=== PATIENT | female | born 1950 | race Caucasian/White ===

== ENCOUNTER 2023-06-13 07:03 | Day surgery (SDC) | payer OTHER ==
[~2023-06-13] VITALS: Ht 152.4 cm; Wt 67.1 kg
[~2023-06-13 07:03] MED LIST: ACETAMINOPHEN 500 MG TABLET PO ONE; CELECOXIB 200 MG CAPSULE PO ONE; GABAPENTIN 300 MG CAPSULE PO ONE; INDOCYANINE GREEN 25 MG VIAL IV ONE; ceFAZolin SODIUM 2 GM in D5W 50 ML IV ONE
[2023-06-13] MEDS ORDERED: CELECOXIB 200 MG CAPSULE ONE (07:32)
[2023-06-13] MEDS ORDERED: GABAPENTIN 300 MG CAPSULE ONE (07:32)
[2023-06-13] MEDS ORDERED: ACETAMINOPHEN 500 MG TABLET ONE (07:32)
[2023-06-13] MEDS ORDERED: NS IRRIG SOLN 1000 ML IR ONE (07:40)
[2023-06-13] MEDS ORDERED: DEXAMETHASONE SOD PHOSPHATE 4 MG/ML VIAL ONE (07:40)
[2023-06-13] MEDS ORDERED: KETOROLAC TROMETHAMINE 30 MG VIAL ONE (07:40)
[2023-06-13] MEDS ORDERED: ONDANSETRON HCL 4 MG/2 ML VIAL ONE (07:40)
[2023-06-13] MEDS ORDERED: MIDAZOLAM HCL/PF 2 MG/2 ML SYRINGE ONE (07:40)
[2023-06-13] MEDS ORDERED: LIDOCAINE/EPI 1% 1:100000 20 ML VIAL ONE (07:40)
[2023-06-13] MEDS ORDERED: PROPOFOL 200MG/ 20ML VIAL (DIPRIVAN) IV ONE (07:40)
[2023-06-13] MEDS ORDERED: DESFLURANE 15 MIN GAS INH ONE (07:40)
[2023-06-13] MEDS ORDERED: NS 1000 ML IV.SOLN IV ONE (07:40)
[2023-06-13] MEDS ORDERED: SUGAMMADEX SODIUM 200 MG/2 ML VIAL IV ONE (07:40)
[2023-06-13] MEDS ORDERED: NS 50 ML BAG IV ONE (07:40)
[2023-06-13] MEDS ORDERED: fentaNYL CITRATE/PF 100 MCG/2 ML AMP ONE (07:40)
[2023-06-13] MEDS ORDERED: ROCURONIUM BROMIDE 10 MG/ML (ZEMURON) ONE (07:40)
[2023-06-13] MEDS ORDERED: BUPIVACAINE /PF 0.25% 30 ML VIAL INJ ONE (07:40)
[2023-06-13] MEDS ORDERED: ACETAMINOPHEN I.V. 1000 MG 100 ML IV ONE (08:12)
[2023-06-13] MEDS ORDERED: METOCLOPRAMIDE HCL 10 MG/2 ML VIAL IVP PRN (08:30)
[2023-06-13] MEDS ORDERED: MEPERIDINE HCL/PF 25 MG/ML DISP.SYRIN IVP PRN (08:30)
[2023-06-13] MEDS ORDERED: LR 1,000 ML IV SCH (08:30)
[2023-06-13] MEDS ORDERED: hydrALAZINE HCL 20 MG/ML VIAL IVP PRN (08:30)
[2023-06-13] MEDS ORDERED: LABETALOL 100 MG/ 20ML VIAL IVP PRN (08:30)
[2023-06-13] MEDS ORDERED: HYDROmorphone 1 MG/ML INJ. CARTRIDGE IVP PRN ×2 (08:30)
[2023-06-13] MEDS ORDERED: METOCLOPRAMIDE HCL 10 MG/2 ML VIAL ONE (09:28)
[2023-06-13 11:33] VITALS: O2SAT 98
[2023-06-13 16:18] VITALS: BP_SYST 124; PULSE 66; RESP 18
== END 2023-06-13 12:45 | disposition home or self-care (01) ==
LOC: SDS 07:03 → SMU 07:04 → SDS 12:45
PROVIDERS: ATTEND Surgery
DX: K80.10 Calculus of gallbladder with chronic cholecystitis without obstruction (principal); I10 Essential (primary) hypertension; K21.9 Gastro-esophageal reflux disease without esophagitis; Z79.899 Other long term (current) drug therapy
CPT/HCPCS: 87081; 47563; 74300; 88304; J3490 ×2; J1100; J1885; J2765; J3465; J2405; J2704; J3010; Q9967; J7060; J7120; J7030; C1727; J0131; 76000